=== PATIENT | male | born 1960 | race Caucasian/White ===

== ENCOUNTER 2025-02-01 05:54 | Day surgery (SDC) | payer MEDICARE ==
[2025-02-01] MEDS: Sodium Chloride 0.9% 1000 ML 1,000 ML IV SCH (06:23)
[2025-02-01 06:27] LABS: ALBUMIN 5.1 g/dL (3.5-5.0); ANION GAP 18.9 MEQ/L (5-15); BILIRUBIN,TOTAL 1.8 mg/dL (0.2-1.3); Calcium 9.8 mg/dL (8.4-10.2); Creatinine 1 1.08 mg/dL (0.66-1.25); EST GLOMERULAR FILTRATION RATE 75.2 ML/MIN; Potassium 4.3 mmol/L (3.5-5.1); Total Protein 7.7 g/dL (6.3-8.2)
[2025-02-01 06:34] VITALS: RESP 16
[2025-02-01] MEDS ORDERED: Versed 2 MG/2 ML Injection ONE (06:59)
[2025-02-01] MEDS ORDERED: propofoL IV ONE (07:01)
[2025-02-01] MEDS ORDERED: Amidate 20 MG/10 ML IV ONE (07:01)
[2025-02-01] MEDS ORDERED: Xylocaine-Mpf 2% 5 Ml Vial ONE (07:01)
[2025-02-01 08:08] VITALS: BP 99/74; PULSE 71; TEMP 97.8; O2SAT 96
[2025-02-01] MEDS ORDERED: SUBLIMAZE 100 MCG/2 ML ONE (08:31)
--- NOTE | 2025-02-04 08:51 | OP ---
SURGERY DATE/TIME: 02/01/2025 9125 - [id number] PREOPERATIVE DIAGNOSIS: Screening exam. POSTOPERATIVE DIAGNOSIS: Normal colon. PROCEDURE: Colonoscopy. SURGEON: Faizan Horner MD. ANESTHESIA: Medications were given by the anesthesia department. INDICATIONS: The patient is a 64-year-old white male patient presenting now for screening colonoscopy. The patient was appraised of the risks of the procedure including risk of perforation, phlebitis, untoward reaction to medication, bleeding, and missed lesions. The patient verbalized his understanding and desire to have procedure performed. DESCRIPTION OF PROCEDURE AND FINDINGS: The patient was given medication by the anesthesia department. He had continuous pulse oximetry, ECG monitoring, and intermittent blood pressure monitoring during the examination. He was placed in the left lateral decubitus position. Digital rectal examination was performed and revealed normal anal sphincter tone and no masses. Normal prostate. The flexible Olympus videocolonoscope was used to intubate the rectum. A view of the colon was developed sequentially to the cecum. Upon insertion and withdrawal, including retroflexed view in the rectum, no mucosal lesions were encountered. The scope was removed from the patient, who tolerated the procedure well, and was sent back to outpatient recovery in good condition. The prep was noted to be fair to good.
== END 2025-02-01 08:19 | disposition home or self-care (01) ==
LOC: SDC 05:54
PROVIDERS: ATTEND Family Medicine
DX: Z12.11 Encounter for screening for malignant neoplasm of colon (principal); I25.10 Atherosclerotic heart disease of native coronary artery without angina pectoris; I48.91 Unspecified atrial fibrillation
CPT/HCPCS: 36415; 80053; 93005; G0121; J2250; J2704; J3010